=== PATIENT | male | born 1965 | race Caucasian/White ===

== ENCOUNTER → 2017-01-24 | Day surgery (SDC) | payer MEDICARE, MEDICAID ==
[~2017-01-24] MED LIST: CLONIDINE 0.2M0.2 MG PO; CYCLOBENZAPRINE10 MG PO; GABAPENTIN 400400 MG PO; HUMALOG100 U/M1 SC; LANTUS INS100 UNITS/ SC; LISINOPRIL40 MG PO; NORCO 325 MG-101 TAB PO; NORVASC 10MG. T10 MG PO; SIMVASTATIN80 MG PO; SPIRONOLACTONE25 MG PO; TRAMADOL 50MG T50 M1 PO
--- NOTE | 2017-01-24 10:50 | Operative Note ---
Surgeon/Diagnoses Surgeon/General Merchandise Manager(s) Date of procedure: 01/24/17 Surgeon: MD Lorne Norton Diagnoses Pre-op diagnosis: LEFT buttock cleft/perianal skin lesion (likely condyloma) Post-op diagnosis Same Procedure Procedure Procedure: Excision of 2.5 cm LEFT perianal/buttock less skin lesion (likely condyloma) Indications: DOMINIK SMITH is a 51 year-old Male with a history of enlarging skin lesion along the LEFT buttock cleft/perianal region. Evaluation revealed a fungating lesion with changes consistent with likely condyloma. Findings: Lesion excised by way of cautery Procedure Description: After informed consent was obtained, the patient was taken to the procedure room. The perianal/buttock cleft region was prepped and draped in a sterile fashion. After infiltration with local anesthetic electrocautery was utilized to remove the lesion. Electrocautery was also utilized to achieve hemostasis. A dressing was applied and the patient was transferred to recovery in stable condition. 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 He will follow up in one week. at 1050
[2017-01-24 15:53] VITALS: BP 140/91
== END ==
LOC: SDC 08:18
PROVIDERS: Surgery
PROC: 0DBQXZZ Excision of Anus, External Approach (ICD-10-PCS; principal; 2017-01-24 09:30)
DX: A63.0 Anogenital (venereal) warts (principal)

== ENCOUNTER → 2017-02-19 | Outpatient (CLI) | payer MEDICARE, MEDICAID ==
[2017-02-19 19:32] LABS: AMPHETAMINES/METAMPHETAMINES NEGATIVE ng/mL (<1000)
[2017-02-21 12:36] LABS: Creatinine, Urine 141.5 mg/dL (Not Estab.); Microalbumin, Urine 4029.6 ug/mL (Not Estab.)
== END ==
LOC: LAB 18:46
PROVIDERS: Emergency Medicine
DX: E11.9 Type 2 diabetes mellitus without complications (principal); Z79.899 Other long term (current) drug therapy

== ENCOUNTER → 2017-03-21 | Outpatient (CLI) | payer MEDICARE, MEDICAID ==
[2017-03-21 13:49] LABS: AMPHETAMINES/METAMPHETAMINES NEGATIVE ng/mL (<1000)
== END ==
LOC: LAB 13:12
PROVIDERS: Emergency Medicine
DX: Z79.899 Other long term (current) drug therapy (principal)

== ENCOUNTER → 2017-04-18 | Outpatient (CLI) | payer MEDICARE, MEDICAID ==
[2017-04-18 16:42] LABS: AMPHETAMINES/METAMPHETAMINES NEGATIVE ng/mL (<1000)
[2017-04-18 18:45] LABS: HEMOGLOBIN 13.5 g/dL (14.1-18.0); LYMPH # 1.2 K/mm3 (0.7-4.5); LYMPH % 18.2 % (10-50)
[2017-04-18 19:16] LABS: BUN 19 mg/dL (7-18)
[2017-04-18 19:26] LABS: GFR (ESTIMATED) 25 ML/MIN (>60)
== END ==
LOC: LAB 16:02
PROVIDERS: Emergency Medicine
DX: Z79.899 Other long term (current) drug therapy (principal); R11.0 Nausea